=== PATIENT | female | born 1995 | race Two or more races ===

== ENCOUNTER 2023-12-19 09:15 | Inpatient (IN) | payer OTHER ==
[~2023-12-19] VITALS: Ht 165.1 cm; Wt 61.2 kg
[2023-12-19 11:36] LABS: HEMATOCRIT 40.8 % (36.0-45.00); HEMOGLOBIN 13.9 g/dL (12.0-15.00); MEAN CELL VOLUME 85.6 fL (80.00-100.00); MEAN CORPUSCULAR HEMOGLOBIN 29.3 pg (27.00-32.0); MEAN CORPUSCULAR HGB CONC 34.2 g/dl (32.0-36.0); PLATELET COUNT 271 K/uL (150-450); RED BLOOD COUNT 4.76 M/uL (4.00-6.00); RED CELL DISTRIBUTION WIDTH 15.2 % (11.5-14.5)
[2023-12-19] MEDS ORDERED: SYNTHROID50 MCG PO (11:52)
[2023-12-19 11:56] LABS: INR 0.95; PARTIAL THROMBOPLASTIN TIME 29.3 SECONDS (22.0-34.0)
[2023-12-19 12:05] LABS: ALBUMIN 4.2 gm/dL (3.4-5.0); BILIRUBIN TOTAL 0.36 mg/dL (0.3-1.2); CALCIUM 9.5 mg/dL (8.5-10.1); CREATININE SERUM 0.65 mg/dL (0.55-1.02); GFR 107.02; GLOBULINA 3.8 G/DL (2.4-3.5); POTASSIUM 3.74 mEq/L (3.5-5.1)
[2023-12-19 12:16] LABS: PH,URINE 7.5 (5.0-8.0); URINE APPEARANCE Clear; URINE BILIRRUBIN Negative (NEGATIVE); URINE BLOOD Small; URINE COLOR Yellow; URINE GLUCOSE Negative (NEGATIVE); URINE LEUKOCYTE Negative; URINE NITRATE Negative; URINE PROTEIN Negative (NEGATIVE); URINE UROBILINOGEN 0.2 E.U./dl
[2023-12-19 12:20] LABS: URINE WBC 2.3 uL (0.0-23.2)
[2023-12-19 12:25] LABS: URINE RBC 0.5 uL (0.0-20.8)
[2024-01-01] MEDS ORDERED: DEXAMETHASONE SODIUM PHOSP/PF 10 MG/ML VIAL ONE (07:05)
[2024-01-01] MEDS ORDERED: DEXAMETHASONE SODIUM PHOSP/PF 10 MG/ML VIAL IV ONE (08:45)
[2024-01-01] MEDS ORDERED: ENALAPRILAT DIHYDRATE 1.25 MG/ML VIAL IV PRN (10:00)
[2024-01-01] MEDS ORDERED: RINGERS SOLUTION,LACTATED 1,000 ML IV SCH (10:00)
[2024-01-01] MEDS ORDERED: ONDANSETRON HCL 2 MG/ML VIAL IV PRN (10:00)
[2024-01-01] MEDS ORDERED: ONDANSETRON HCL 2 MG/ML VIAL ONE (10:41)
[2024-01-01] MEDS ORDERED: TRAMADOL HCL 50 MG TABLET PO SCH (12:00)
[2024-01-01] MEDS ORDERED: CYCLOBENZAPRINE HCL 5 MG TABLET PO SCH (17:00)
[2024-01-01] MEDS ORDERED: ACETAMINOPHEN 500 MG GEL..CAP PO SCH (17:00)
[2024-01-01] MEDS ORDERED: Calcium Carbonate 1 TAB TABLET PO SCH (21:00)
[2024-01-01] MEDS ORDERED: CALCITRIOL 0.5 MCG CAPSULE PO ONE (21:45)
[2024-01-01] MEDS ORDERED: Calcium Carbonate 1 TAB TABLET PO ONE (21:45)
[2024-01-02] MEDS ORDERED: Calcium Carbonate 1 TAB TABLET PO SCH (04:00)
[2024-01-02] MEDS ORDERED: LEVOTHYROXINE SODIUM 100 MCG TABLET PO SCH (06:00)
[2024-01-02] MEDS ORDERED: CALCITRIOL 0.5 MCG CAPSULE PO SCH (09:00)
== END 2024-01-02 12:58 | disposition home or self-care (01) | DRG 627 ==
LOC: ADM 09:15 → EDSTATUS 09:15 → O/R 01-01 05:17 → SURH 01-01 05:17
PROVIDERS: ADMIT Otolaryngology; ATTEND Otolaryngology
PROC: 0GTK0ZZ Resection of Thyroid Gland, Open Approach (ICD-10-PCS; 2024-01-01)
PROC: 0GSR0ZZ Reposition Parathyroid Gland, Open Approach (ICD-10-PCS; principal; 2024-01-01 07:00)
DX: C73 Malignant neoplasm of thyroid gland (principal); Z20.822 Contact with and (suspected) exposure to COVID-19

== ENCOUNTER 2024-12-26 23:59 | Emergency (ER) | payer OTHER ==
[~2024-12-26] VITALS: Ht 165.1 cm; Wt 57.6 kg
[~2024-12-26 23:59] MED LIST: SYNTHROID50 MCG PO
[2024-12-27] MEDS ORDERED: PHENAZOPYRIDINE HCL 100 MG TABLET PO STA (01:40)
[2024-12-27] MEDS ORDERED: CEFTRIAXONE SODIUM 1,000 MG VIAL IM STA (01:41)
[2024-12-27 02:08] LABS: HEMATOCRIT 34.4 % (36.0-45.00); HEMOGLOBIN 11.6 g/dL (12.0-15.00); MEAN CELL VOLUME 84.1 fL (80.00-100.00); MEAN CORPUSCULAR HEMOGLOBIN 28.4 pg (27.00-32.0); MEAN CORPUSCULAR HGB CONC 33.7 g/dl (32.0-36.0); PLATELET COUNT 234 K/uL (150-450); RED BLOOD COUNT 4.09 M/uL (4.00-6.00); RED CELL DISTRIBUTION WIDTH 14.7 % (11.5-14.5)
[2024-12-27 03:10] LABS: PH,URINE 6.5 (5.0-8.0); URINE APPEARANCE Clear; URINE BILIRRUBIN Negative (NEGATIVE); URINE BLOOD Negative; URINE COLOR Yellow; URINE GLUCOSE Negative (NEGATIVE); URINE KETONE Trace (NEGATIVE); URINE LEUKOCYTE Negative; URINE NITRATE Negative; URINE PROTEIN Negative (NEGATIVE)
[2024-12-27 03:13] LABS: URINE BACTERIA 1713.5 uL (0.0-1933); URINE EPITHELIAL CELLS 27.5 uL (0.0-38.8); URINE RBC 47.4 uL (0.0-20.8); URINE WBC 14.8 uL (0.0-23.2)
[2024-12-27] MEDS ORDERED: KETOROLAC TROMETHAMINE 10 MG TABLET PO STA (04:13)
== END 2024-12-27 08:33 ==
LOC: ER 12-27
PROVIDERS: General Practice
DX: N99.89 Other postprocedural complications and disorders of genitourinary system (principal); R33.8 Other retention of urine; R10.2 Pelvic and perineal pain; R30.0 Dysuria